=== PATIENT | male | born 1985 | race Caucasian/White ===

== ENCOUNTER 2018-06-26 06:41 | Emergency (ER) | payer SELFPAY ==
[~2018-06-26] VITALS: Ht 175.3 cm; Wt 72.6 kg
[2018-06-26] MEDS: ONDANSETRON PF 4 MG/2 ML VIAL. IV ONE (07:15)
[2018-06-26] MEDS: IV NORMAL SALINE 1000ML BAG 1,000 ML IV ONE (07:15)
[2018-06-26] MEDS: MORPHINE SULFATE 4 MG/ML VIAL. IV ONE (07:28)
--- NOTE | 2018-06-26 07:32 | PHYS DOC ---
Past Medical History Past Medical History: Other Additional Past Medical Histor: ADD Alcohol Use: None Drug Use: None Adult General Chief Complaint Chief Complaint: ABDOMINAL PAIN HPI HPI Patient is a 33 year old male who presents with acute onset upper abdominal pain, starting several hours prior to ED arrival. Associated symptoms include nausea and vomiting. No hematemesis coffee-ground emesis. Pain is described as sharp rated moderate to severe is worse with palpation and movement. No diarrhea. No fever chills. Patient is diaphoretic. No prior abdominal surgeries. History of ADD, but denies other chronic medical conditions. Patient is nonsmoker. Denies drugs and alcohol abuse.[] Review of Systems Review of Systems Review symptoms as per history of present illness. All other review symptoms are negative. All other systems were reviewed and found to be within normal limits, except as documented in this note. Current Medications Current Medications Current Medications Medications (Trade) Dose Ordered Sig/Morgan Start Time Stop Time Status Last Admin Dose Admin Info (CONTRAST GIVEN -- Rx MONITORING) 1 each PRN DAILY PRN 06/26/18 09:00 06/28/18 08:59 Iohexol (Omnipaque 300 Mg/ml) 75 ml 1X ONCE 06/26/18 09:00 06/26/18 09:01 DC 06/26/18 08:55 75 ML Ketorolac Tromethamine (Toradol 30mg Vial) 30 mg 1X ONCE 06/26/18 10:30 06/26/18 10:31 DC 06/26/18 10:30 30 MG Morphine Sulfate (Morphine Sulfate) 4 mg 1X ONCE 06/26/18 07:15 06/26/18 07:24 DC 06/26/18 07:28 4 MG Ondansetron HCl (Zofran) 8 mg 1X ONCE 06/26/18 07:15 06/26/18 07:24 DC 06/26/18 07:15 8 MG Sodium Chloride 1,000 ml @ 1,000 mls/hr 1X ONCE 06/26/18 07:15 06/26/18 08:14 DC 06/26/18 07:15 1,000 MLS/HR Allergies Allergies Allergies Coded Allergies Type Severity Reaction Last Updated Verified No Known Drug Allergies 06/26/18 No Physical Exam Physical Exam Constitutional: Well developed, moderate distress secondary to pain. .[] HENT: Normocephalic, atraumatic, bilateral external ears normal, oropharynx moist, nose normal. [] Eyes: PERRLA, EOMI, conjunctiva normal. [] Neck: Normal range of motion. [] Cardiovascular:Heart rate regular rhythm, no murmur [] Lungs & Thorax: Bilateral breath sounds clear to auscultation [] Abdomen: Bowel sounds normal, soft, use epigastric/left upper quadrant pain, tenderness, voluntary guarding.. [] Skin: Diaphoretic, pale[] Back: No tenderness [] Extremities: No tenderness, no cyanosis, no clubbing, ROM intact, no edema. [] Neurologic: Alert and oriented X 3, normal motor function, normal sensory function, no focal deficits noted. [] Psychologic: Affect normal, judgement normal, mood normal. [] Current Patient Data Vital Signs Vital Signs Date Time Temp Pulse Resp B/P (MAP) Pulse Ox O2 Delivery O2 Flow Rate FiO2 06/26/18 09:54 60 17 134/96 (109) 100 06/26/18 07:15 97.9 Room Air 97.9 Lab Values Laboratory Tests Test 06/26/18 07:07 White Blood Count 10.2 x10^3/uL (4.0-11.0) Red Blood Count 4.83 x10^6/uL (4.30-5.70) Hemoglobin 15.4 g/dL (13.0-17.5) Hematocrit 44.8 % (39.0-53.0) Mean Corpuscular Volume 93 fL (79-100) Mean Corpuscular Hemoglobin 32 pg (25-35) Mean Corpuscular Hemoglobin Concent 34 g/dL (31-37) Red Cell Distribution Width 13.3 % (11.5-14.5) Platelet Count 178 x10^3/uL (140-400) Neutrophils (%) (Auto) 83 % (31-73) H Lymphocytes (%) (Auto) 12 % (24-48) L Monocytes (%) (Auto) 5 % (0-9) Eosinophils (%) (Auto) 1 % (0-3) Basophils (%) (Auto) 0 % (0-3) Neutrophils # (Auto) 8.4 x10^3uL (1.8-7.7) H Lymphocytes # (Auto) 1.2 x10^3/uL (1.0-4.8) Monocytes # (Auto) 0.5 x10^3/uL (0.0-1.1) Eosinophils # (Auto) 0.1 x10^3/uL (0.0-0.7) Basophils # (Auto) 0.0 x10^3/uL (0.0-0.2) Sodium Level 140 mmol/L (136-145) Potassium Level 3.8 mmol/L (3.5-5.1) Chloride Level 102 mmol/L (98-107) Carbon Dioxide Level 25 mmol/L (21-32) Anion Gap 13 (6-14) Blood Urea Nitrogen 16 mg/dL (8-26) Creatinine 1.1 mg/dL (0.7-1.3) Estimated GFR (Cockcroft-Gault) 77.6 BUN/Creatinine Ratio 15 (6-20) Glucose Level 119 mg/dL (70-99) H Calcium Level 9.6 mg/dL (8.5-10.1) Total Bilirubin 0.4 mg/dL (0.2-1.0) Aspartate Amino Transferase (AST) 36 U/L (15-37) Alanine Aminotransferase (ALT) 55 U/L (16-63) Alkaline Phosphatase 82 U/L (46-116) Troponin I Quantitative < 0.017 ng/mL (0.000-0.055) Total Protein 7.4 g/dL (6.4-8.2) Albumin 3.8 g/dL (3.4-5.0) Albumin/Globulin Ratio 1.1 (1.0-1.7) Lipase 90 U/L (73-393) Ethyl Alcohol Level < 10 mg/dL (0-10) Laboratory Tests 06/26/18 07:07 Laboratory Tests 06/26/18 07:07 EKG EKG [] Radiology/Procedures Radiology/Procedures [CT abdomen pelvis: 5 mm obstructing calculus left ureter per radiology report] Course & Med Decision Making Course & Med Decision Making Pertinent Labs and Imaging studies reviewed. (See chart for details) [Acute onset flank pain with 5 mm UVJ stone with evidence of hydro-. Symptoms resolved with treatment in the emergency department. Suspects stone may have passed. Wi'll treat supportively with urology follow-up. Return precautions reviewed.] Dragon Disclaimer Dragon Disclaimer This electronic medical record was generated, in whole or in part, using a voice recognition dictation system. Departure Departure Impression: Primary Impression: Ureteral calculus, left Additional Impression: Left flank pain Disposition: 01 HOME, SELF-CARE Condition: GOOD Referrals: RAFFI TARANGO MD Patient Instructions: Kidney Stones, [id number] Additional Instructions: You were evaluated in the emergency department for flank pain. CT and lab were performed. A 5 mm obstructing stone was found in your left ureter just above the level of your bladder. Please take pain and nausea medication as directed and Flomax to with passage of stone. Strain urine for stone. Follow-up with urologist on-call in 2-3 days for reevaluation. Return to the ED if new or worsening symptoms. Scripts Tamsulosin Hcl (FLOMAX) 0.4 Mg Cap.er.24h 1 CAP PO DAILY, #10 CAP 11 Refills Prov: VERONA TRUJILLO DO 06/26/18 Ondansetron Hcl (ZOFRAN) 4 Mg Tablet 1 TAB PO Q6HRS, #10 TAB 0 Refills Prov: VERONA TRUJILLO DO 06/26/18 Oxycodone/Apap 5-325 (PERCOCET 5-325 MG TABLET ) 1 Each Tablet 1-2 TAB PO PRN Q6HRS PRN for PAIN for 10 Days, #5 TAB 0 Refills Prov: VERONA TRUJILLO DO 06/26/18 Problem Qualifiers VERONA TRUJILLO DO Jun 26, 2018 07:32
[2018-06-26 07:38] LABS: BASO % 0 % (0-3); EOS # 0.1 x10^3/uL (0.0-0.7); EOS % 1 % (0-3); HEMATOCRIT 44.8 % (39.0-53.0); HEMOGLOBIN 15.4 g/dL (13.0-17.5); LYMPH # 1.2 x10^3/uL (1.0-4.8); LYMPH % 12 % (24-48); MEAN CORPUSCULAR HEMOGLOBIN 32 pg (25-35); MEAN CORPUSCULAR HGB CONC 34 g/dL (31-37); MEAN CORPUSCULAR VOLUME 93 fL (79-100); MONO # 0.5 x10^3/uL (0.0-1.1); MONO % 5 % (0-9); NEUT # 8.4 x10^3uL (1.8-7.7); NEUT % 83 % (31-73); PLATELET COUNT 178 x10^3/uL (140-400); RED BLOOD COUNT 4.83 x10^6/uL (4.30-5.70); RED CELL DISTRIBUTION WIDTH 13.3 % (11.5-14.5); WHITE BLOOD COUNT 10.2 x10^3/uL (4.0-11.0)
[2018-06-26 07:57] LABS: CALCIUM 9.6 mg/dL (8.5-10.1); CREATININE 1.1 mg/dL (0.7-1.3); GFR 77.6; POTASSIUM 3.8 mmol/L (3.5-5.1)
[2018-06-26 08:02] LABS: ALBUMIN 3.8 g/dL (3.4-5.0); ALBUMIN/GLOBULIN RATIO 1.1 (1.0-1.7); TOTAL BILIRUBIN 0.4 mg/dL (0.2-1.0); TOTAL PROTEIN 7.4 g/dL (6.4-8.2)
--- NOTE | 2018-06-26 08:12 | RAD ---
Portable chest, 06/26/2018: HISTORY: Chest pain The heart size and pulmonary vascularity are normal. No pulmonary infiltrate is seen. There is no evidence of pleural fluid. There is a mild thoracic scoliosis. IMPRESSION: No acute cardiopulmonary abnormality is detected. Electronically signed by: Edwin Foster MD (06/26/2018 8:07 AM) [facility]
[2018-06-26] MEDS: IOHEXOL 300 MG/ML 100ML VIAL. IV ONE (08:55)
[2018-06-26] MEDS ORDERED: CONTRAST GIVEN. MC PRN (09:00)
--- NOTE | 2018-06-26 09:30 | RAD ---
CT of the abdomen and pelvis with contrast, 06/26/2018: HISTORY: Left upper quadrant pain Multidetector CT imaging was performed following an IV bolus injection of iodinated contrast material. No oral contrast material was administered for this exam. No hepatic abnormality is seen. The gallbladder is unremarkable. No pancreatic abnormality is seen. The spleen is of normal size. There is an 8 mm calculus or cluster of calculi in the lower pole of the right kidney. The right renal collecting system and ureter are not dilated. No left intrarenal calculus is seen. The left renal collecting system and left ureter are mildly dilated. This appears to be due to a 5 mm obstructing calculus in the distal left ureter near the ureterovesical junction. Several other small bilateral lower pelvic calcifications are probably phleboliths. A prostatic calcification is also noted. The aorta is unremarkable. No abdominal or pelvic adenopathy is seen. The bowel loops are not dilated. The cecum is low-lying in the anterior aspect of the lower pelvis. A portion of what appears to be the appendix is visualized and it is unremarkable. The stomach is mildly distended with fluid. No free air or free fluid is evident in the abdomen or pelvis. There is a mild left convexity lumbar scoliosis. There is a transitional vertebra at the lumbosacral junction with mild degenerative changes in the lower lumbar spine. IMPRESSION: 1. 5 mm obstructing calculus in the distal left ureter at the ureterovesical junction. 2. Small nonobstructing right intrarenal calculus. 3. Mild distention of the stomach with fluid. PQRS Compliance Statement: One or more of the following individualized dose reduction techniques were utilized for this examination: 1. Automated exposure control 2. Adjustment of the mA and/or kV according to patient size 3. Use of iterative reconstruction technique Electronically signed by: Edwin Foster MD (06/26/2018 9:25 AM) [facility]
--- NOTE | 2018-06-26 09:41 | EKG ---
[facility] [address] [place] [address] Test Date: 2018-06-26 Test Time: 07:30:14 Pat Name: RG KEARNS Department: Room: Gender: M Social Media Content Manager: : 1985 Requested By: VERONA TRUJILLO Order Number: [id number] Reading MD: Raf Desai MD Measurements Intervals [place] Rate: 49 P: ID: QRS: 86 QRSD: 114 T: 76 QT: 462 QTc: 420 Interpretive Statements SR NON-SPECIFIC ST/T CHANGES Electronically Signed On 06-27-2018 12:13:06 PAPER MACHINE TENDER by Raf Desai MD
[2018-06-26] MEDS: KETOROLAC 30 MG/ML VIAL. IV ONE (10:30)
[2018-06-26 11:00] VITALS: BP 116/56
[2018-06-26] MEDS ORDERED: ONDA4TAB7 PO (11:35)
[2018-06-26] MEDS ORDERED: TAMS0.4C97 PO (11:35)
[2018-06-26] MEDS ORDERED: OXYC1TAB15 PO (11:35)
[2018-06-26 11:41] LABS: BILIRUBIN,URINE NEGATIVE (NEG); CLARITY,URINE CLEAR; COLOR,URINE YELLOW; NITRITE,URINE NEGATIVE (NEG); PROTEIN,URINE NEGATIVE (NEG-TRACE); UROBILINOGEN,URINE 0.2 mg/dL (0.2 mg/dL)
[2018-06-26 11:47] LABS: BARBITURATES NEG (NEG); BENZODIAZEPINES NEG (NEG); CANNABINOIDS NEG (NEG); COCAINE NEG (NEG); METHADONE NEG (NEG); OPIATES POS (NEG); PHENCYCLIDINE NEG (NEG)
[2018-06-26 11:48] LABS: AMPHETAMINE/METHAMPHETAMINE POS (NEG)
[2018-06-26 11:52] LABS: BACTERIA,URINE 0 /HPF (0-FEW); WBC,URINE 0 /HPF (0-4)
== END 2018-06-26 12:53 | disposition home or self-care (01) ==
LOC: ER 06:41
DX: N20.1 Calculus of ureter (principal); R11.2 Nausea with vomiting, unspecified; R61 Generalized hyperhidrosis; R10.12 Left upper quadrant pain; R10.13 Epigastric pain
CPT/HCPCS: 36415; 71045; 74177; 80053; 80307; 81001; 83690; 84484; 85025; 93005; 96361; 96374; 96375; 99284; G0480; J1885; J2270; J2405; J7030; Q9967

== ENCOUNTER → 2018-06-29 | Outpatient (CLI) | payer OTHER ==
[2018-06-26 11:00] VITALS: BP 116/56
[~2018-06-29] MED LIST: ONDA4TAB7 PO; OXYC1TAB15 PO; TAMS0.4C97 PO
--- NOTE | 2018-06-29 10:43 | RAD ---
Single view of the abdomen 06/29/2018 INDICATION: Bilateral ureteral calculus. COMPARISON STUDY: CT of the abdomen and pelvis with contrast, June 26, 2018. FINDINGS: Exam limited by gas and stool throughout the colon, particularly in the pelvis. Previously seen stone at the level of the ureterovesicular junction is not identified on today's radiograph. 8mm calculus projecting over the right kidney grossly unchanged. Levoscoliosis of lumbar spine noted. No acute osseous changes are seen. No evidence of bowel obstruction is seen. IMPRESSION: 1. Previously seen stone in the distal left ureter is not identified radiographically on today's study 2. Right nephrolithiasis Electronically signed by: Sumit Mondragon MD (06/29/2018 10:39 AM) [id number]
== END | disposition home or self-care (01) ==
LOC: RAD 09:26
PROVIDERS: ATTEND Urology
DX: N20.0 Calculus of kidney (principal)
CPT/HCPCS: 74018